=== PATIENT | male | born 1980 | race African-American/Black ===

== ENCOUNTER 2020-08-25 19:14 | Inpatient (IN) | payer SELFPAY ==
[~2020-08-25 19:14] MED LIST: Dexamethasone 20 MG/5 ML VIAL ONE; Esmolol 100 MG/10 ML VIAL ONE; Glycopyrrolate 0.2 MG/ML 5 ML SYRINGE ONE; Iopamidol-370 76% 500 ML 1 ML ONE; Ketorolac Tromethamine 30 MG/ML VIAL ONE; Lidocaine 1% PF 5 ML VIAL ONE; Ondansetron PF 4 MG/2 ML Vial ONE; PROPOFOL 200 MG/20 ML VIAL ONE; Rocuronium Bromide 10 MG/ML (10ML VIAL) ONE; Succinylcholine 200 MG/10 ml SYRINGE FS ONE; ePHEDrine 50 MG/ML VIAL ONE
[2020-08-25] MEDS ORDERED: Morphine 4 MG/ML VIAL ONE ×2 (19:19→19:45)
[2020-08-25 19:35] LABS: #Basophils 0.1 thou/uL (0.0-0.2); #Eosinphils 0.5 thou/uL (0.0-0.7); #Lymphocytes 4.7 thou/uL (1.20-3.40); #Monocytes 1.2 thou/uL (0.11-0.59); #Neutrophils 11.5 thou/uL (1.40-6.50); %Basophils 0.7 % (0.0-1.0); %Eosinophils 2.7 % (0.0-10.0); %Lymphocytes 26.3 % (21.0-51.0); %Monocytes 6.5 % (0.0-10.0); %Neutrophils 63.8 % (42.0-75.0); Hemoglobin 15.9 g/dL (14.0-18.0); Mean Corpuscular HGB CONC 33.6 g/dL (32.0-36.0); Mean Corpuscular Hemoglobin 32.7 pg (27.0-31.0); Mean Corpuscular Volume 97.4 fL (78.0-98.0); Mean Platelet Volume 6.9 fL (7.4-10.4); Platelet Count 383 thou/uL (130-400); RBC Distribution Width 12.4 % (11.5-14.5); Red Blood Cell (RBC) Count 4.87 mill/uL (4.70-6.10)
[2020-08-25 19:41] LABS: INR-International Normal Ratio 0.9; PTT 26.5 sec (22.9-36.1); Prothrombin Time 12.4 sec (12.0-14.7)
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
[2020-08-25] MEDS ORDERED: Ondansetron PF 4 MG/2 ML Vial ONE (19:45)
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
[2020-08-25 19:57] LABS: ALT (SGPT) 30 U/L (8-55); AST (SGOT) 40 U/L (5-34); Albumin 4.2 g/dL (3.5-5.0); Alkaline Phosphatase 64 U/L (40-110); Anion Gap 20 mmol/L (10-20); BUN (Urea Nitrogen) 13 mg/dL (8.9-20.6); Bilirubin, Total 0.4 mg/dL (0.2-1.2); Calc. Creatinine Clearance 0 mL/min (70-130); Calcium 8.9 mg/dL (7.8-10.44); Carbon Dioxide 20 mmol/L (22-29); Chloride 104 mmol/L (98-107); Estimated GFR-MDRD 68; Globulin 3.3 g/dL (2.4-3.5); Glucose 104 mg/dL (70-105); Protein, Total 7.5 g/dL (6.0-8.3); Sodium 140 mmol/L (136-145)
[2020-08-25] MEDS ORDERED: Lorazepam 2 MG/ML VIAL ONE (19:57)
[2020-08-25] MEDS ORDERED: Diazepam 10 MG/2 ML SYRINGE ONE (19:57)
[2020-08-25] MEDS ORDERED: Dextrose 5% in Water 1,000 ML IV PRN (20:10)
[2020-08-25] MEDS ORDERED: Ondansetron ODT 4 MG TAB PO PRN (20:10)
[2020-08-25] MEDS ORDERED: Dextrose 50% Abboject 50 ML SYRINGE SLOW IVP PRN (20:10)
[2020-08-25] MEDS ORDERED: Morphine 4 MG/ML VIAL SLOW IVP PRN (20:10)
[2020-08-25] MEDS ORDERED: Cyclobenzaprine 10 MG TAB PO PRN (20:15)
[2020-08-25] MEDS ORDERED: Fentanyl 100 MCG/2 ML VIAL ONE ×2 (20:36→21:01)
[2020-08-25] MEDS ORDERED: HYDROmorphone 0.5 MG/0.5 ML SYRINGE ONE (21:01)
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
[2020-08-25 22:14] LABS: Medtox Reader # READER 1
[2020-08-25 22:15] LABS: Amphetamine Not Detected (NotDetected); Barbiturates Screen Not Detected (NotDetected); Benzodiazepine Screen Not Detected (NotDetected); Cocaine Metabolite Screen Detected (NotDetected); Medtox Control Line Valid? VALID (VALID); Methadone Not Detected (NotDetected); Methamphetamine Not Detected (NotDetected); Opiate Screen Detected (NotDetected); Oxycodone Screen Not Detected (NotDetected); Phencyclidine (PCP) Not Detected (NotDetected); THC/Cannabinoid Screen Not Detected (NotDetected); Tricyclic Screen Not Detected (NotDetected)
[2020-08-25 22:17] LABS: Bacteria/HPF None Seen HPF (None Seen); Bilirubin Negative (Negative); Blood, Urine Trace (Negative); Clarity Clear (Clear); Glucose, Urine (Dipstick) Normal (Negative); Ketone, Urine Trace mg/dL (Negative); Leukocyte Negative Leu/uL (Negative); Nitrite Negative (Negative); Protein, Urine (Dipstick) Negative (Neg-Trace); RBC/HPF 0-3 HPF (0-3); Specific Gravity, Urine 1.043 (1.002-1.036); Squamous Epithelial None Seen HPF (0-3); Urobilinogen Normal mg/dL (Less than 2); WBC/HPF None Seen HPF (0-3); pH, Urine 5.5 (5.0-9.0)
--- NOTE | 2020-08-25 23:52 | RAD ---
EXAM: 2 views of the left femur HISTORY: Femur fracture COMPARISON: 08/25/2020 at 7:19 PM FINDINGS: Limited intraoperative fluoroscopic views show the patient is status post intramedullary ro d fixation of the fracture of the midportion of the femur. No perihardware lucency is seen. IMPRESSION: Status post ORIF of mid left femur fracture
[2020-08-26] MEDS ORDERED: Promethazine HCl 25 MG/ML VIAL SLOW IVP PRN (00:03)
[2020-08-26] MEDS ORDERED: Ondansetron HCl/PF 4 MG/2 ML Vial IVP PRN (00:03)
[2020-08-26] MEDS ORDERED: HYDROmorphone 2 MG/ML VIAL SLOW IVP PRN (00:03)
[2020-08-26] MEDS ORDERED: Promethazine HCl 25 MG/ML VIAL IM PRN (00:03)
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
[2020-08-26 02:35] VITALS: BMI 27.2
[2020-08-26] MEDS: Gabapentin 300 MG CAP PO SCH ×3 (03:04→20:21)
[2020-08-26] MEDS: Acetaminophen 500 MG TAB PO SCH ×4 (03:04→17:18)
[2020-08-26] MEDS: Ibuprofen 200 MG TAB PO SCH ×4 (03:04→17:18)
[2020-08-26] MEDS: traMADol HCl 50 MG TAB PO SCH ×4 (03:04→17:19)
[2020-08-26] MEDS: CEFAZOLIN 2 GM in Premix Bag 1 BAG IVPB SCH ×2 (03:41→11:20)
[2020-08-26 06:08] LABS: #Lymphocytes 0.6 thou/uL (1.20-3.40); #Monocytes 0.5 thou/uL (0.11-0.59); #Neutrophils 11.1 thou/uL (1.40-6.50); %Eosinophils 0.1 % (0.0-10.0); %Lymphocytes 5.2 % (21.0-51.0); %Monocytes 3.8 % (0.0-10.0); %Neutrophils 90.9 % (42.0-75.0); Hemoglobin 13.8 g/dL (14.0-18.0); Mean Corpuscular HGB CONC 33.5 g/dL (32.0-36.0); Mean Corpuscular Hemoglobin 32.7 pg (27.0-31.0); Mean Corpuscular Volume 97.6 fL (78.0-98.0); Mean Platelet Volume 7.5 fL (7.4-10.4); Platelet Count 361 thou/uL (130-400); RBC Distribution Width 12.3 % (11.5-14.5); Red Blood Cell (RBC) Count 4.21 mill/uL (4.70-6.10); White Blood Cell (WBC) Count 12.2 thou/uL (4.8-10.8)
[2020-08-26 06:33] LABS: Anion Gap 17 mmol/L (10-20); BUN (Urea Nitrogen) 11 mg/dL (8.9-20.6); Calc. Creatinine Clearance 114 mL/min (70-130); Calcium 8.3 mg/dL (7.8-10.44); Carbon Dioxide 20 mmol/L (22-29); Chloride 103 mmol/L (98-107); Estimated GFR-MDRD Greater than 90; Glucose 111 mg/dL (70-105); Magnesium 1.7 mg/dL (1.6-2.6); Potassium 4.5 mmol/L (3.5-5.1); Sodium 135 mmol/L (136-145)
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
[2020-08-26] MEDS: Famotidine 20 MG TAB PO SCH (08:36)
[2020-08-26] MEDS: Thiamine 100 MG TAB PO SCH (09:40)
[2020-08-26] MEDS: Folic Acid 1 MG TAB PO SCH (09:40)
[2020-08-26] MEDS: Multivit, Therapeutic 1 TAB PO SCH (09:40)
[2020-08-26] MEDS: Oxazepam 10 MG CAP PO SCH ×3 (09:40→20:22)
[2020-08-26] MEDS ORDERED: FLU VACC QS2020-21(6MOS UP)/PF 60 MCG/0.5 ML SYRINGE IM ONE (21:00)
[2020-08-27] MEDS: Acetaminophen 500 MG TAB PO SCH ×4 (00:15→17:21)
[2020-08-27] MEDS: traMADol HCl 50 MG TAB PO SCH ×4 (00:16→17:22)
[2020-08-27] MEDS: Ibuprofen 200 MG TAB PO SCH ×4 (00:16→17:22)
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
[2020-08-27] MEDS: Famotidine 20 MG TAB PO SCH (08:28)
[2020-08-27] MEDS: Folic Acid 1 MG TAB PO SCH (08:28)
[2020-08-27] MEDS: Multivit, Therapeutic 1 TAB PO SCH (08:28)
[2020-08-27] MEDS: Thiamine 100 MG TAB PO SCH (08:28)
[2020-08-27] MEDS: Gabapentin 300 MG CAP PO SCH (08:28)
[2020-08-27] MEDS: Oxazepam 10 MG CAP PO SCH ×2 (08:29→15:44)
[2020-08-27] MEDS ORDERED: Enoxaparin Sodium 40 MG/0.4 ML SYRINGE SC SCH ×2 (10:45→21:00)
[2020-08-27 15:55] VITALS: BP 116/75; TEMP 97.9
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
== END 2020-08-27 18:30 | disposition home or self-care (01) | DRG 956 ==
LOC: ERS 19:14 → SDC/OP 22:12 → SURG A 22:13
PROVIDERS: ADMIT Surgery; ATTEND Surgery
PROC: 0QH736Z Insertion of Intramedullary Internal Fixation Device into Left Upper Femur, Percutaneous Approach (ICD-10-PCS; principal; 2020-08-25)
PROC: 3E02340 Introduction of Influenza Vaccine into Muscle, Percutaneous Approach (ICD-10-PCS; 2020-08-26)
DX: S72.352A Displaced comminuted fracture of shaft of left femur, initial encounter for closed fracture (principal); S37.051A Moderate laceration of right kidney, initial encounter; N17.9 Acute kidney failure, unspecified; V99.XXXA Unspecified transport accident, initial encounter; F17.210 Nicotine dependence, cigarettes, uncomplicated; F10.10 Alcohol abuse, uncomplicated; J43.9 Emphysema, unspecified
CPT/HCPCS: 27502; 36415; 36416; 70450; 71045; 71260; 72125; 72170; 74177; 76000; 80048; 80053; 80306; 80307; 81003; 81015; 83735; 84100; 85025; 85610; 85730; 90471; 90662; 94640; 96365; 96375; 96376; C1713; G0008; G0390; J0690; J1100; J1170; J1650; J1885; J2060; J2270; J2405; J2704; J3010; J3360; J3490; J7620; Q9967